=== PATIENT | male | born 1990 | race Caucasian/White ===

== ENCOUNTER 2018-01-26 09:59 | Emergency (ER) | payer BC ==
[2018-01-26 10:16] VITALS: BP 123/77
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
== END 2018-01-26 10:50 | disposition home or self-care (01) ==
LOC: UCCORT 09:59
DX: H61.21 Impacted cerumen, right ear (principal); H60.92 Unspecified otitis externa, left ear; F17.210 Nicotine dependence, cigarettes, uncomplicated
CPT/HCPCS: 99203; G0463

== ENCOUNTER 2018-02-09 09:19 | Emergency (ER) | payer BC ==
[2018-02-09 09:32] VITALS: BP 124/77
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
== END 2018-02-09 09:56 | disposition home or self-care (01) ==
LOC: UCCORT 09:19
DX: H66.42 Suppurative otitis media, unspecified, left ear (principal); F17.210 Nicotine dependence, cigarettes, uncomplicated
CPT/HCPCS: 99212; G0463

== ENCOUNTER 2018-05-10 11:31 | Emergency (ER) | payer BC ==
[2018-05-10 11:45] VITALS: BP 144/81
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
--- NOTE | 2018-05-10 12:56 | RAD ---
INDICATION: Low back pain. COMPARISON: There are no relevant prior studies available for comparison. TECHNIQUE: 5 views of the lumbar spine were obtained including lateral, oblique, AP and a coned-down lateral view of the lumbar sacral junction. FINDINGS: The vertebra are in normal alignment. No fracture is seen. There is mild degenerative disc disease at the L5-S1 level. IMPRESSION: MILD DEGENERATIVE DISC DISEASE AT THE L5-S1 LEVEL.
--- NOTE | 2018-05-10 12:58 | RAD ---
INDICATION: Mid back pain. COMPARISON: There are no relevant prior studies available for comparison. TECHNIQUE: AP and lateral films of the dorsal spine were obtained. FINDINGS: The vertebra are in normal alignment. No fracture is seen. There is mild to moderate degenerative disc disease in the mid dorsal spine. IMPRESSION: MILD TO MODERATE DEGENERATIVE DISC DISEASE.
[2018-05-10] MEDS ORDERED: oxyCODONE/Acetamin 5/325 MG* TAB PO ONE (13:23)
[2018-05-10] MEDS ORDERED: HYDROcodone/ACETAMIN 5-325 MG* 1 TAB PO ONE (13:31)
== END 2018-05-10 13:44 | disposition home or self-care (01) ==
LOC: UCCORT 11:31
DX: S39.012A Strain of muscle, fascia and tendon of lower back, initial encounter (principal); S29.012A Strain of muscle and tendon of back wall of thorax, initial encounter; M47.9 Spondylosis, unspecified; F17.210 Nicotine dependence, cigarettes, uncomplicated; X50.9XXA Other and unspecified overexertion or strenuous movements or postures, initial encounter; Y92.9 Unspecified place or not applicable
CPT/HCPCS: 72070; 72110; 99212; A9270-GY; G0463

== ENCOUNTER 2019-09-19 12:55 | Emergency (ER) | payer BC ==
[2019-09-19 13:22] VITALS: BP 124/77
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
== END 2019-09-19 13:49 | disposition home or self-care (01) ==
LOC: UCCORT 12:55
DX: L72.9 Follicular cyst of the skin and subcutaneous tissue, unspecified (principal); J45.909 Unspecified asthma, uncomplicated; F17.210 Nicotine dependence, cigarettes, uncomplicated
CPT/HCPCS: 99211; G0463